=== PATIENT | female | born 1930 | race Caucasian/White ===

== ENCOUNTER 2018-06-12 19:51 | Emergency (ER) | payer MEDICARE, BC ==
[~2018-06-12] VITALS: Ht 172.7 cm; Wt 69.0 kg
[~2018-06-12 19:51] MED LIST: ASPI81TA52 PO; CARV-50 PO; FLUO20CA39 PO; LEVO75TA PO; RAMI5CAP65 PO; SIMV40TA4 PO; SITA100T15 PO
[2018-06-12 20:57] LABS: BASOPHILS # (AUTO) 0.1 X10'3 (0-0.2); BASOPHILS % (AUTO) 0.8 % (0-1); EOSINOPHILS # (AUTO) 0.2 X10'3 (0-0.9); EOSINOPHILS % (AUTO) 2.3 % (0-6); HEMATOCRIT 36.2 % (35.0-45.0); HEMOGLOBIN 11.9 g/dl (12.0-16.0); LYMPHOCYTES # (AUTO) 2.3 X10'3 (1.1-4.8); LYMPHOCYTES % (AUTO) 28.7 % (21-51); MEAN CORPUSCULAR HGB CONC 32.9 g/dL (33.0-36.5); MEAN CORPUSCULAR VOLUME 94.2 FL (78-98); MEAN PLATELET VOLUME 8.2 FL (7.4-10.4); MONOCYTES # (AUTO) 0.6 X10'3 (0-0.9); MONOCYTES % (AUTO) 7.7 % (2-12); NEUTROPHILS % (AUTO) 60.5 % (42-75); PLATELET COUNT 215 X10'3 (140-440); RED BLOOD COUNT 3.85 X10'6 (4.20-5.60); RED CELL DISTRIBUTION WIDTH 14.8 % (11.5-14.5); WHITE BLOOD COUNT 8.2 X10'3 (4.5-11.0)
[2018-06-12 21:04] LABS: ALANINE AMINOTRANSFERASE 18 U/L (12-78); ALBUMIN 3.5 G/DL (3.4-5.0); ALBUMIN/GLOBULIN RATIO 0.9 (1.1-1.5); ALKALINE PHOSPHATASE 74 IU/L (46-116); ANION GAP 7 (8-16); ASPARTATE AMINO TRANSFERASE 16 U/L (10-37); BILIRUBIN,TOTAL 0.2 MG/DL (0.1-1.0); BLOOD UREA NITROGEN 16 MG/DL (7-18); BUN/CREATININE RATIO 12.6 (6.6-38.0); CALCIUM 9.3 MG/DL (8.5-10.1); CHLORIDE 104 MMOL/L (99-107); CREATININE 1.27 MG/DL (0.40-0.90); GLUCOSE 160 MG/DL (70-104); PARTIAL THROMBOPLASTIN TIME 28 SECONDS (22-32); POTASSIUM 4.3 MMOL/L (3.5-5.1); PROTHROMBIN TIME 10.4 SECONDS (9.0-12.0); SODIUM 138 MMOL/L (135-145); TOTAL CARBON DIOXIDE 26.6 MMOL/L (24-32); TOTAL PROTEIN 7.2 G/DL (6.4-8.2); eGFR 40 ML/MIN
[2018-06-12 22:53] VITALS: BP 123/77
[2018-06-12] MEDS ORDERED: mag hydrox/Alum hydrox/simeth 30ml oral suspension PO ONE (23:20)
[2018-06-12] MEDS ORDERED: diphenhydrAMINE 25 MG/10 ML UD oral solution PO ONE (23:20)
[2018-06-12] MEDS ORDERED: LIDOcaine Viscous 15ml cup MM PRN (23:20)
[2018-06-12] MEDS ORDERED: pantoprazole 40mg Tablet.DR PO SCH (23:24)
--- NOTE | 2018-06-12 23:54 | NUR ---
family asked if pt could take her evening/night meds. crescencio oneal stated it was ok
== END 2018-06-13 00:15 | disposition home or self-care (01) ==
LOC: ER 19:52
DX: R07.9 Chest pain, unspecified (principal); E11.9 Type 2 diabetes mellitus without complications; I25.2 Old myocardial infarction; Z79.899 Other long term (current) drug therapy; Z88.5 Allergy status to narcotic agent; Z79.82 Long term (current) use of aspirin
CPT/HCPCS: 36415; 71045; 80053; 84484; 85025; 85610; 85730; 99284; Q0163

== ENCOUNTER 2018-10-02 15:05 | Emergency (ER) | payer MEDICARE, BC ==
[~2018-10-02] VITALS: Ht 170.2 cm; Wt 75.0 kg
[2018-10-02] MEDS ORDERED: mineral oil 133ml enema RC PRN (15:55)
[2018-10-02] MEDS ORDERED: magnesium citrate 296ml oral solution PO ONE (17:00)
--- NOTE | 2018-10-02 17:10 | NUR ---
multiple attempts and discussions regarding bowel care and mechanisms to prevent constipation with patient and son and daughter in law patient lives alone a few doors down from her son we discussed increasing fluid and fiber intake, increasing excersize and knowing and understanding the medications that the patient takes and the medications the patient takes for her bowels the son talked about the patient's 3 stool softeners, when asked what they were, the daughter in law told the patient "see, I told you to put your medication list in your purse"; when we discussed increasing her fiber in her diet, the patient stated that "my daughter in law does not think that i get proper food from meals on wheels". when we discussed increased fluid intake, the patient stated that she drinks 4 bottled hernandez a day. when we discussed increasing her excersize, her son stated that "she cant; she only walks to the bathroom and back" I discussed with the family that the patient may need assistance with her food: increased fiber, discussed otc fiber products: metamucil and benefiber. i dsicussed that the family couild assist the patient with ambulating father than the bathrrom with walker. i discussed with the son that he could write down the medications the md wants her to take for constipation. the patient takes some combinations of stool medications for constipation that she or her family are not clear on.
--- NOTE | 2018-10-02 17:23 | NUR ---
mineral oil enema with barely 3 minutes retention time: small amount of dark, almost black stool: patient recently taking iron supplements moderate to large amount of stool from pa dimpaction: then patient had 4 small 2 inch long soft bms
[2018-10-02 17:57] VITALS: BP 132/71
--- NOTE | 2018-10-02 18:07 | NUR ---
WHEELCHAIRED PT TO POV, PATIENT GOT UP ON OWN POWER , PUT SELF INTO VEHICLE A&OX4 NO COMPLAINTS OF PAIN, D,N,V. PINK WARM AND DRY
[2018-10-02] MEDS ORDERED: CHOL100046 PO (19:53)
[2018-10-02] MEDS ORDERED: DOCU-148 PO (19:53)
[2018-10-02] MEDS ORDERED: FERR324T4 PO (19:55)
[2018-10-02] MEDS ORDERED: SENN-162 PO (19:56)
[2018-10-02] MEDS ORDERED: NATE120T PO (19:57)
[2018-10-02] MEDS ORDERED: MAGN400C PO (20:09)
== END 2018-10-02 17:35 | disposition home or self-care (01) ==
LOC: ER 15:06
DX: K59.01 Slow transit constipation (principal); I25.2 Old myocardial infarction; E11.9 Type 2 diabetes mellitus without complications; Z95.0 Presence of cardiac pacemaker; Z88.5 Allergy status to narcotic agent; Z79.82 Long term (current) use of aspirin; Z79.899 Other long term (current) drug therapy
CPT/HCPCS: 74018; 99283

== ENCOUNTER 2018-10-02 18:10 | Inpatient (IN) | payer MEDICARE, BC ==
[~2018-10-02] VITALS: Ht 170.2 cm; Wt 77.3 kg
[2018-10-02] MEDS ORDERED: ondansetron/PF 4mg/2ml inj IV ONE (18:20)
[2018-10-02] MEDS ORDERED: morphine 4 MG/ML inj SYRINge IV ONE (18:20)
--- NOTE | 2018-10-02 18:30 | NUR ---
JANNETTE PEREZ INFORMED OF 8 BEAT RUN OF V TACH, PATIETN UNCHANGED: STILL VERY PALE/MAURER, MOANING THAT SHE IS GOING TO PASS OUT, DIAPHORETIC
--- NOTE | 2018-10-02 18:40 | NUR ---
RIGHT AC PIV 18 GAUGE STARTED AND LABS DRAWN LEFT PIV FIELD START FLUSHED WITH 10 ML NS
--- NOTE | 2018-10-02 18:44 | NUR ---
PATIENT TO CT SCAN
[2018-10-02 18:46] LABS: BASOPHILS # (AUTO) 0.1 X10'3 (0-0.2); BASOPHILS % (AUTO) 0.3 % (0-1); EOSINOPHILS # (AUTO) 0.1 X10'3 (0-0.9); EOSINOPHILS % (AUTO) 0.5 % (0-6); HEMATOCRIT 36.4 % (35.0-45.0); HEMOGLOBIN 12.3 g/dl (12.0-16.0); LYMPHOCYTES # (AUTO) 2.4 X10'3 (1.1-4.8); LYMPHOCYTES % (AUTO) 11.5 % (21-51); MEAN CORPUSCULAR HEMOGLOBIN 32.4 PG (27.0-31.0); MEAN CORPUSCULAR HGB CONC 33.7 g/dL (33.0-36.5); MEAN CORPUSCULAR VOLUME 96.1 FL (78-98); MEAN PLATELET VOLUME 8.6 FL (7.4-10.4); MONOCYTES # (AUTO) 1.3 X10'3 (0-0.9); MONOCYTES % (AUTO) 6.1 % (2-12); NEUTROPHILS # (AUTO) 16.7 X10'3 (1.8-7.7); NEUTROPHILS % (AUTO) 81.6 % (42-75); PLATELET COUNT 239 X10'3 (140-440); RED BLOOD COUNT 3.79 X10'6 (4.20-5.60); RED CELL DISTRIBUTION WIDTH 12.8 % (11.5-14.5); WHITE BLOOD COUNT 20.5 X10'3 (4.5-11.0)
[2018-10-02] MEDS ORDERED: LORazepam 2 mg/ml vial IV ONE (18:50)
[2018-10-02 18:55] LABS: ALANINE AMINOTRANSFERASE 17 U/L (12-78); ALBUMIN 3.4 G/DL (3.4-5.0); ALKALINE PHOSPHATASE 66 IU/L (46-116); ANION GAP 15 (8-16); ASPARTATE AMINO TRANSFERASE 19 U/L (10-37); BILIRUBIN,TOTAL 0.8 MG/DL (0.1-1.0); BLOOD UREA NITROGEN 15 MG/DL (7-18); BUN/CREATININE RATIO 10.3 (6.6-38.0); CALCIUM 8.8 MG/DL (8.5-10.1); CHLORIDE 96 MMOL/L (99-107); CREATININE 1.46 MG/DL (0.40-0.90); GLUCOSE 221 MG/DL (70-104); POTASSIUM 3.8 MMOL/L (3.5-5.1); SODIUM 130 MMOL/L (135-145); TOTAL CARBON DIOXIDE 19.1 MMOL/L (24-32); TOTAL PROTEIN 6.8 G/DL (6.4-8.2); eGFR 34 ML/MIN
[2018-10-02 18:59] LABS: TROPONIN I < 0.04 NG/ML (0.0-0.05)
[2018-10-02] MEDS ORDERED: normal saline 1000ml 1,000 ML IV ONE (19:00)
[2018-10-02] MEDS ORDERED: CefTRIAXone 2gm/D5W 50ml 50 ML IV ONE (19:20)
--- NOTE | 2018-10-02 19:30 | NUR ---
large brown soft bm
--- NOTE | 2018-10-02 19:37 | NUR ---
SON: KIMI PATEL: CELL [phone] GRA[address] KNOB [phone] DAUGHTER IN LAW: ESTELA PATEL
--- NOTE | 2018-10-02 19:40 | NUR ---
SON GIVEN PATIENTS BELONGINGS: MEDICAL ALERT NECKLACE, AND HOUSECOAT AND UNDERWEAR
[2018-10-02 19:47] LABS: CLARITY,URINE CLEAR (Clear); COLOR,URINE YELLOW (Yellow); GLUCOSE, URINE 100 mg/dl (Neg); KETONES,URINE 15 mg/dl (Neg); LEUKOCYTE ESTERASE ,URINE NEGATIVE (Neg); NITRITES, URINE NEGATIVE (Neg); OCCULT BLOOD,URINE TRACE-INTACT (Neg); PH,URINE 6.5 (4.8-8.0); PROTEIN,URINE NEGATIVE (Neg); UROBILINOGEN,URINE 0.2 E.U/dL (0.2-1.0)
[2018-10-02 19:49] LABS: UA COLLECTION TYPE CLN CATCH MIDSTREAM
[2018-10-02] MEDS ORDERED: DOCU-148 PO (19:53)
[2018-10-02] MEDS ORDERED: CHOL100046 PO (19:53)
[2018-10-02] MEDS ORDERED: FERR324T4 PO (19:55)
[2018-10-02 19:56] LABS: BACTERIA,URINE NONE SEEN /HPF (Neg); MUCUS STRANDS NONE SEEN /LPF (Neg); RBC,URINE 0-2 /HPF (0-2); SQUAMOUS EPITHELIAL CELL,UR FEW /LPF (FEW); WBC,URINE 0-4 /HPF (0-4)
[2018-10-02] MEDS ORDERED: SENN-162 PO (19:56)
[2018-10-02] MEDS ORDERED: NATE120T PO (19:57)
[2018-10-02] MEDS ORDERED: MAGN400C PO (20:09)
--- NOTE | 2018-10-02 20:29 | NUR ---
PER JANNETTE PEREZ OK FOR AUBRIE TO EAT: AUBRIE HAS ONLY HAD AN BULGARIAN MUFFIN TODAY, NOTHING ELSE PATIENT ATE 4 OZ YOGURT, 130 ML WHOLE MILK, 120 ML WATER
[2018-10-02] MEDS ORDERED: normal saline 1000ml 1,000 ML IV SCH (20:50)
--- NOTE | 2018-10-02 21:15 | NUR ---
REPORT TO CARA RN: SBAR
[2018-10-02] MEDS ORDERED: magnesium 4gm in 100ml NS 100 ML IV PRN (21:20)
[2018-10-02] MEDS ORDERED: potassium CL 10mEq/100ml bag 100 ML IV PRN ×2 (21:20)
[2018-10-02] MEDS ORDERED: ondansetron/PF 4mg/2ml inj IV PRN (21:20)
[2018-10-02] MEDS ORDERED: magnesium Cl slow-release 64mg tablet PO PRN (21:20)
[2018-10-02] MEDS ORDERED: potassium Cl 20 mEq SR tablet PO PRN ×2 (21:20)
[2018-10-02] MEDS ORDERED: magnesium 2GM in 50ml NS 50 ML IV PRN (21:20)
[2018-10-02] MEDS ORDERED: acetaminophen 325mg tablet PO PRN (21:20)
--- NOTE | 2018-10-02 21:35 | NUR ---
DISCUSSED LACTIC OF 2.9 WITH PA PEREZ; VERBAL ORDER FOR 500 ML NS IV DUE TO PATIENT'S CARDIAC HISTORY PA AWARE THAT PATIENT RECEIVED 1 LITER OF NS IV
[2018-10-02] MEDS: normal saline 1000ml 1,000 ML IV SCH (21:36)
--- NOTE | 2018-10-02 21:48 | NUR ---
2044: TIME DISCUSSED LACTATE OF 2.9 WITH PA PEREZ
[2018-10-02 22:30] VITALS: BP 144/56
--- NOTE | 2018-10-02 22:30 | NUR ---
Patient in room ORTHO 4009. I have received report from BROCK Groves and had the opportunity to ask questions and assume patient care.
[2018-10-03] VITALS (7 sets, daily range): BP systolic 81–120; BP diastolic 40–55
[2018-10-03] MEDS ORDERED: MESSAGE TO PHARMACY PO ONE (00:55)
[2018-10-03] MEDS ORDERED: dextrose ORAL solution 15 GM/59 ML bottle PO PRN ×2 (00:55)
[2018-10-03] MEDS ORDERED: dextrose 50%-water 50ml dispensing syringe IV PRN ×2 (00:55)
[2018-10-03] MEDS ORDERED: glucagon, human recombinant 1mg kit SUBCUT PRN (00:55)
[2018-10-03] MEDS: insulin Lispro (HumaLOG) vial - multi-dose SQ SCH ×3 (01:34→19:06)
[2018-10-03] MEDS: insulin glargine (Lantus) pen - multi-dose SQ SCH ×2 (01:36→21:13)
[2018-10-03 06:34] LABS: ALBUMIN 2.7 G/DL (3.4-5.0); ANION GAP 8 (8-16); BLOOD UREA NITROGEN 13 MG/DL (7-18); BUN/CREATININE RATIO 10.6 (6.6-38.0); CALCIUM 8.2 MG/DL (8.5-10.1); CHLORIDE 101 MMOL/L (99-107); CREATININE 1.23 MG/DL (0.40-0.90); GLUCOSE 155 MG/DL (70-104); MAGNESIUM 1.8 MG/DL (1.5-2.4); POTASSIUM 3.7 MMOL/L (3.5-5.1); SODIUM 133 MMOL/L (135-145); TOTAL CARBON DIOXIDE 23.9 MMOL/L (24-32); eGFR 41 ML/MIN
[2018-10-03 06:37] LABS: BASOPHILS % (AUTO) 0.3 % (0-1); EOSINOPHILS # (AUTO) 0.1 X10'3 (0-0.9); EOSINOPHILS % (AUTO) 0.7 % (0-6); HEMATOCRIT 31.3 % (35.0-45.0); HEMOGLOBIN 10.9 g/dl (12.0-16.0); LYMPHOCYTES # (AUTO) 2.3 X10'3 (1.1-4.8); LYMPHOCYTES % (AUTO) 15.6 % (21-51); MEAN CORPUSCULAR HGB CONC 34.7 g/dL (33.0-36.5); MEAN CORPUSCULAR VOLUME 95.1 FL (78-98); MEAN PLATELET VOLUME 8.4 FL (7.4-10.4); NEUTROPHILS # (AUTO) 11.1 X10'3 (1.8-7.7); NEUTROPHILS % (AUTO) 76.4 % (42-75); PLATELET COUNT 194 X10'3 (140-440); RED BLOOD COUNT 3.29 X10'6 (4.20-5.60); RED CELL DISTRIBUTION WIDTH 12.9 % (11.5-14.5); WHITE BLOOD COUNT 14.6 X10'3 (4.5-11.0)
--- NOTE | 2018-10-03 06:50 | NUR ---
Problems reprioritized. Patient report given, questions answered & plan of care reviewed with BROCK Kolb.
[2018-10-03] MEDS: K and/or MAG REPLACEMENT MC SCH (08:00)
[2018-10-03] MEDS ORDERED: bisacodyl 10mg suppository rectal RC STA (08:11)
[2018-10-03] MEDS: levoTHYROXINE 75mcg tablet PO SCH (08:52)
[2018-10-03] MEDS: FLUoxetine 20mg capsule PO SCH (08:53)
[2018-10-03] MEDS: sennosides 8.6mg tablet PO SCH (08:53)
[2018-10-03] MEDS: aspirin 81mg tablet.DR PO SCH (08:53)
[2018-10-03] MEDS: carVEDilol 12.5mg tablet PO SCH ×2 (08:53→20:18)
[2018-10-03] MEDS: vitamin D (cholecalciferol) 1,000 unit tablet PO SCH (08:53)
[2018-10-03] MEDS: heparin, porcine 5000 units/ml vial SQ SCH ×2 (08:54→20:18)
[2018-10-03] MEDS: normal saline 1000ml 1,000 ML IV SCH ×3 (09:08→20:30)
--- NOTE | 2018-10-03 10:30 | NUR ---
PAGER ID: [phone] MESSAGE: [phone] Georgie Avery Patient has a 9/10 pain in her rectum from hemorriods she says. Can I give her something for pain. Kennedi [phone]
--- NOTE | 2018-10-03 10:50 | NUR ---
patient just had Large bm, states she is no longer in pain
--- NOTE | 2018-10-03 12:00 | NUR ---
DM Consult: A1C 7.8. Pt seen by RD for written/verbal DM ed w/ RD contact information provided. Pt hx chronic constipation and taking Fe for anemia; per pt constipation now resolved just feeling weak. Addendum: 10/03/18 at [address] Amended: Links added.
[2018-10-03 14:19] LABS: OCCULT BLOOD STOOL NEGATIVE (Neg)
--- NOTE | 2018-10-03 18:02 | NUR ---
Problems reprioritized. Patient report given, questions answered & plan of care reviewed with Vidhi GUTIÉRREZ.
[2018-10-03] MEDS ORDERED: atorvastatin 20mg tablet PO SCH (21:00)
[2018-10-04] MEDS: normal saline 1000ml 1,000 ML IV SCH (05:09)
[2018-10-04 06:00] VITALS: BP 120/42
--- NOTE | 2018-10-04 06:24 | NUR ---
Problems reprioritized. Patient report given, questions answered & plan of care reviewed with BROCK Crow.
[2018-10-04 07:04] LABS: BASOPHILS # (AUTO) 0.1 X10'3 (0-0.2); BASOPHILS % (AUTO) 0.7 % (0-1); EOSINOPHILS # (AUTO) 0.4 X10'3 (0-0.9); EOSINOPHILS % (AUTO) 4.2 % (0-6); HEMATOCRIT 30.1 % (35.0-45.0); HEMOGLOBIN 10.4 g/dl (12.0-16.0); LYMPHOCYTES # (AUTO) 2.2 X10'3 (1.1-4.8); LYMPHOCYTES % (AUTO) 22.8 % (21-51); MEAN CORPUSCULAR HEMOGLOBIN 33.1 PG (27.0-31.0); MEAN CORPUSCULAR HGB CONC 34.5 g/dL (33.0-36.5); MEAN CORPUSCULAR VOLUME 96.1 FL (78-98); MEAN PLATELET VOLUME 8.7 FL (7.4-10.4); MONOCYTES # (AUTO) 0.8 X10'3 (0-0.9); MONOCYTES % (AUTO) 7.9 % (2-12); NEUTROPHILS # (AUTO) 6.1 X10'3 (1.8-7.7); NEUTROPHILS % (AUTO) 64.4 % (42-75); PLATELET COUNT 176 X10'3 (140-440); RED BLOOD COUNT 3.13 X10'6 (4.20-5.60); RED CELL DISTRIBUTION WIDTH 13.1 % (11.5-14.5); WHITE BLOOD COUNT 9.5 X10'3 (4.5-11.0)
[2018-10-04 07:06] LABS: ALBUMIN 2.7 G/DL (3.4-5.0); ANION GAP 10 (8-16); BLOOD UREA NITROGEN 9 MG/DL (7-18); BUN/CREATININE RATIO 7.6 (6.6-38.0); CALCIUM 8.3 MG/DL (8.5-10.1); CHLORIDE 110 MMOL/L (99-107); CREATININE 1.18 MG/DL (0.40-0.90); GLUCOSE 94 MG/DL (70-104); MAGNESIUM 1.7 MG/DL (1.5-2.4); POTASSIUM 3.8 MMOL/L (3.5-5.1); SODIUM 142 MMOL/L (135-145); TOTAL CARBON DIOXIDE 21.9 MMOL/L (24-32); eGFR 43 ML/MIN
[2018-10-04] MEDS: K and/or MAG REPLACEMENT MC SCH (08:00)
[2018-10-04] MEDS: carVEDilol 12.5mg tablet PO SCH (08:00)
[2018-10-04] MEDS: aspirin 81mg tablet.DR PO SCH (08:36)
[2018-10-04] MEDS: FLUoxetine 20mg capsule PO SCH (08:36)
[2018-10-04] MEDS: vitamin D (cholecalciferol) 1,000 unit tablet PO SCH (08:36)
[2018-10-04] MEDS: levoTHYROXINE 75mcg tablet PO SCH (08:36)
[2018-10-04] MEDS: heparin, porcine 5000 units/ml vial SQ SCH (08:37)
[2018-10-04] MEDS: insulin Lispro (HumaLOG) vial - multi-dose SQ SCH (08:43)
[2018-10-04] MEDS: sennosides 8.6mg tablet PO SCH (08:45)
[2018-10-04 10:00] VITALS: BP 126/46
[2018-10-04] MEDS ORDERED: CARV-49 PO (10:07)
[2018-10-04] MEDS ORDERED: MAGN400O6 PO (10:07)
--- NOTE | 2018-10-04 11:12 | NUR ---
DM Consult: Already addressed; see prior RD note. Addendum: 10/04/18 at [address] Amended: Links added.
== END 2018-10-04 12:30 | disposition home or self-care (01) | DRG 683 ==
LOC: ER 18:11 → ORTHO 4S 22:48
PROVIDERS: ADMIT Internal Medicine; ATTEND Internal Medicine
DX: N17.9 Acute kidney failure, unspecified (principal); I42.9 Cardiomyopathy, unspecified; I95.1 Orthostatic hypotension; E86.0 Dehydration; E03.9 Hypothyroidism, unspecified; E11.9 Type 2 diabetes mellitus without complications; K56.41 Fecal impaction; E78.5 Hyperlipidemia, unspecified; F32.9 Major depressive disorder, single episode, unspecified; I11.0 Hypertensive heart disease with heart failure; I50.9 Heart failure, unspecified; Z79.82 Long term (current) use of aspirin; Z79.84 Long term (current) use of oral hypoglycemic drugs; I25.2 Old myocardial infarction; Z79.899 Other long term (current) drug therapy; Z95.0 Presence of cardiac pacemaker; Z88.5 Allergy status to narcotic agent; Z90.49 Acquired absence of other specified parts of digestive tract
CPT/HCPCS: 36415; 71045; 74018; 74176; 80048; 80053; 81001; 82272; 82948; 83036; 83605; 83735; 84145; 84484; 85025; 85610; 87040; 87081; 93005; 93306; 96361; 96365; 96375; 97116; 97161; 97530; 99283; 99285; G0378; J0696; J1644; J1815; J2060; J2270; J2405; J7030